=== PATIENT | male | born 1990 | race Caucasian/White ===

== ENCOUNTER 2020-04-09 15:14 | Outpatient (CLI) | payer BC | END 2020-04-09 15:15 | disposition home or self-care (01) | LOC: CTENTCT 15:14 | PROVIDERS: ATTEND Otolaryngology Plastic Surgery within the Head & Neck | DX: J32.9 Chronic sinusitis, unspecified (principal) | CPT/HCPCS: 70486 ==

== ENCOUNTER 2020-04-24 06:39 | Day surgery (SDC) | payer BC ==
[2020-04-23 10:37] VITALS: BMI 24.3
[2020-04-24] MEDS ORDERED: Acetaminophen 500 MG TAB ONE (07:18)
[2020-04-24] MEDS ORDERED: Midazolam HCl 2 mg/2 ml Vial ONE (07:18)
[2020-04-24] MEDS ORDERED: AFRIN NASAL MIST 15 ML BOT ONE ×2 (07:18→08:17)
[2020-04-24] MEDS ORDERED: Fentanyl 250 MCG/5 ML VIAL ONE (07:36)
[2020-04-24] MEDS ORDERED: Bacitracin Zinc Ointment 30 gm TUBE ONE (08:17)
[2020-04-24] MEDS ORDERED: Lidocaine 1% w/Epinephrine 1:100K 20 ML VIAL ONE (08:17)
[2020-04-24] MEDS ORDERED: Ondansetron ODT 4 MG TAB ONE (12:54)
[2020-04-24] MEDS ORDERED: Lidocaine 1% PF 5 ML VIAL ONE (15:38)
[2020-04-24] MEDS ORDERED: Ondansetron PF 4 MG/2 ML Vial ONE (15:38)
[2020-04-24] MEDS ORDERED: Glycopyrrolate 0.2 MG/ML 5 ML SYRINGE ONE (15:38)
[2020-04-24] MEDS ORDERED: Dexamethasone 20 MG/5 ML VIAL ONE (15:38)
[2020-04-24] MEDS ORDERED: Ketorolac Tromethamine 30 MG/ML VIAL ONE (15:38)
[2020-04-24] MEDS ORDERED: PROPOFOL 200 MG/20 ML VIAL ONE (15:38)
[2020-04-24] MEDS ORDERED: Rocuronium Bromide 10 MG/ML (10ML VIAL) ONE (15:38)
--- NOTE | 2020-05-01 22:55 | OP ---
DATE OF PROCEDURE: 04/24/2020 PREOPERATIVE DIAGNOSES: 1. Chronic rhinosinusitis. 2. Nasal septal deviation. 3. Bilateral inferior turbinate hypertrophy. 4. Nasal obstruction. 5. Bilateral dynamic nasal valve collapse. POSTOPERATIVE DIAGNOSES: 1. Chronic rhinosinusitis. 2. Nasal septal deviation. 3. Bilateral inferior turbinate hypertrophy. 4. Nasal obstruction. 5. Bilateral dynamic nasal valve collapse. PROCEDURE PERFORMED: 1. Bilateral endoscopic sinus surgery, total ethmoidectomies. 2. Bilateral endoscopic sinus surgery, maxillary antrostomies. 3. Bilateral endoscopic sinus surgery, frontal sinusotomies. 4. Nasal septoplasty. 5. Bilateral inferior turbinate submucosal resection. 6. Bilateral repair of nasal valve collapse. ESTIMATED BLOOD LOSS: 20 mL. COMPLICATIONS: None. ANESTHESIA: GETA. PROCEDURE IN DETAIL: Patient was taken to the operating room and placed supine on the table. General endotracheal anesthesia was obtained by the anesthesia staff. Then 1% lidocaine with 1:100,000 epinephrine was injected into the nasal septum as well as the inferior turbinates. The patient was prepped and draped in standard surgical fashion. The Afrin pledgets were then removed. A Malachi incision was made on the left nasal septum. Submucoperichondrial dissection was performed bilaterally of the deviated portions of the septum, which included the maxillary crest and the crest deviation, as well as the mid portion of the septum. Cartilage and bony deviation was removed, leaving a generous caudal and dorsal strut. Any straight pieces of cartilage were then placed within the cartilage press, pressed, straightened, and then placed between the mucoperichondrial flaps, which were then closed using a 4-0 gut stitch. The inferior turbinates were then punctured with the submucosal Coblation machine, and 3 separate coblations were delivered to the anterior inferior portion of the inferior turbinates. Following this, the nasal cavity was irrigated. All debris was removed. An orogastric tube was placed. Gastric contents and Clark splints were then placed in the nasal cavity and sutured with a 3-0 silk stitch. Following this, a 0-degree endoscope was advanced in the middle turbinate and middle meatus area. The middle turbinates were gently medialized with a [place] elevator and the uncinate process was visualized bilaterally. Following this, the uncinate process was then anteriorly fractured using a ball-ended probe and the uncinate process was then removed using the up-biting Blakesley forceps and the 0-degree microdebrider bilaterally. Following this, the natural maxillary sinus ostia was identified and was gently widened using a ball-ended probe and a 40-degree microdebrider blade. Following this, the natural maxillary sinus ostia was identified and was widened using the 40-degree microdebrider blade and straight Blakesley forceps bilaterally. Following this, the ethmoidal bulla was identified and was punctured on its medial and inferior aspect using the 0-degree microdebrider and the ethmoidal bulla was removed using the microdebrider and up-biting Blakesley forceps bilaterally. Following this, the grand lamella was identified and was punctured into the using microdebrider blade. Working from posterior to anterior, the ethmoidal cells were opened in a mucosal sparing technique, making sure to protect the cribriform plate throughout the ethmoidectomies. Following this, the 45-degree endoscope and the 40-degree microdebrider blade was then used to further open the anterior ethmoidal cells and identify the frontal sinus ostia bilaterally. The frontal sinus ostia were then widened using a 40-degree microdebrider blade bilaterally. Following this, a transcartilaginous endonasal approach was made to the lateral nasal wall bilaterally. An 11-blade was used to make an incision in the mucosa and a subperiosteal pocket was dissected over the nasal bones bilaterally. A graft was placed over in this subperiosteal nasal bone pocket and extended inferiorly to support the lower lateral cartilages bilaterally. Following this, the nasal cavity was irrigated. Nasal pore packing was placed within the middle meatus. Clark splints were placed and secured. The patient tolerated the procedure well. Job ID: [id number]
== END 2020-04-24 13:05 | disposition home or self-care (01) ==
LOC: SDC 06:39
PROVIDERS: ATTEND Otolaryngology Plastic Surgery within the Head & Neck
PROC: 09BL8ZZ Excision of Nasal Turbinate, Via Natural or Artificial Opening Endoscopic (ICD-10-PCS; principal; 2020-04-24)
PROC: 099R8ZZ Drainage of Left Maxillary Sinus, Via Natural or Artificial Opening Endoscopic (ICD-10-PCS; principal; 2020-04-24)
PROC: 099Q8ZZ Drainage of Right Maxillary Sinus, Via Natural or Artificial Opening Endoscopic (ICD-10-PCS; principal; 2020-04-24)
PROC: 09BM8ZZ Excision of Nasal Septum, Via Natural or Artificial Opening Endoscopic (ICD-10-PCS; principal; 2020-04-24)
PROC: 09BT8ZZ Excision of Left Frontal Sinus, Via Natural or Artificial Opening Endoscopic (ICD-10-PCS; principal; 2020-04-24)
PROC: 09BS8ZZ Excision of Right Frontal Sinus, Via Natural or Artificial Opening Endoscopic (ICD-10-PCS; principal; 2020-04-24)
PROC: 09BU8ZZ Excision of Right Ethmoid Sinus, Via Natural or Artificial Opening Endoscopic (ICD-10-PCS; principal; 2020-04-24)
PROC: 09BV8ZZ Excision of Left Ethmoid Sinus, Via Natural or Artificial Opening Endoscopic (ICD-10-PCS; principal; 2020-04-24)
DX: J32.0 Chronic maxillary sinusitis (principal); J34.2 Deviated nasal septum; J34.3 Hypertrophy of nasal turbinates; J34.89 Other specified disorders of nose and nasal sinuses; J30.9 Allergic rhinitis, unspecified
CPT/HCPCS: J1100; J1885; J2250; J2405; J2704; J3010; Q0162